=== PATIENT | female | born 1965 | race Caucasian/White ===

== ENCOUNTER 2017-02-28 18:20 | Inpatient (IN) | payer OTHER ==
[~2017-02-28] VITALS: Ht 172.7 cm; Wt 122.0 kg
--- NOTE | 2017-02-28 18:40 | NUR ---
BIB SELF PRESENTS TO ED: SOB , NAUSEA x 2 WEEKS. DENIES COUGH/CONGESTION, NAD NOTED, VSS, RESP EVEN AND UNLABORED, SKIN WARM AND DRY. AT BS.
--- NOTE | 2017-02-28 19:23 | NUR ---
XRAY AT BS
[2017-02-28 19:24] LABS: BASOPHILS % (AUTO) 0.2 % (0.0-2.0); EOSINOPHILS # (AUTO) 0.3 /CMM (0.0-0.7); EOSINOPHILS % (AUTO) 3.6 % (0.0-6.0); HEMATOCRIT 41 % (33-45); HEMOGLOBIN 13.2 g/dL (11.5-14.8); LYMPHOCYTES # (AUTO) 1.5 /CMM (0.8-4.8); LYMPHOCYTES % (AUTO) 16.5 % (20.0-44.0); MEAN CORPUSCULAR HEMOGLOBIN 26 PG (26.0-33.0); MEAN CORPUSCULAR HGB CONC 33 g/dl (31.0-36.0); MEAN CORPUSCULAR VOLUME 81 fL (82-100); MONOCYTES # (AUTO) 0.4 /CMM (0.1-1.30); MONOCYTES % (AUTO) 4.3 % (2.0-12.0); NEUTROPHILS # (AUTO) 6.9 /CMM (1.8-8.9); NEUTROPHILS % (AUTO) 75.4 % (43.0-81.0); PLATELET COUNT (AUTO) 224 /CMM (150-450); RDW COEFFICIENT OF VARIATION 15.4 (11.5-15.0); RED BLOOD CELL COUNT(AUTO) 5.03 MIL/uL (4.0-5.2); WHITE BLOOD COUNT (AUTO) 9.1 K/uL (4.3-11.0)
--- NOTE | 2017-02-28 19:25 | NUR ---
RECEIVED REPORT. PATIENT RESTING IN BED COMFORTABLY. WILL CONTINUE TO MONITOR.
[2017-02-28 19:58] LABS: D-DIMER 0.36 mg/L(FEU (0.17-0.50); INR 0.97 (0.87-1.13); PROTHROMBIN TIME 10.1 SECS (9.5-12.7)
--- NOTE | 2017-02-28 22:20 | NUR ---
DR RUVALCABA ON THE PHONE WITH MERON JERONIMO NP REGARDING PATIENT ADMISSION.
[2017-02-28 22:26] LABS: CALCIUM, SERUM 8.9 mg/dL (8.5-10.1); CREATININE 1.1 mg/dL (0.6-1.3)
[2017-02-28 22:40] LABS: TROPONIN I 0.486 ng/mL (0.00-0.056)
--- NOTE | 2017-02-28 23:02 | NUR ---
REPORT GIVEN TO JESUS QUIROZ FOR ADMISSION.
[2017-02-28 23:05] VITALS: BP 137/97
--- NOTE | 2017-02-28 23:14 | NUR ---
PATIENT TRANSPORTED TO [facility] [place] VIA ACLS PROTOCOL. RNRICHIE TO PROVIDE ZEINAB.
[2017-02-28 23:30] VITALS: BP 137/97
--- NOTE | 2017-03-01 | NUR ---
TELE/RN NOTES PT RECEIVED FROM ER VIA P[facility]REZ, ACCOMPANIED BY LB AND DAUGHTER. A/OX4, BREATHING EVEN AND UNLABORED. DENIES SOB OR CHEST PAIN AT THIS TIME. APPEARS ANXIOUS. PLACED ON TELE MONITOR SHOWING SINUS RHYTHM HR IN 70'S. IV TO LEFT HAND PATENT AND INTACT. ORIENTED PT TO ROOM AND CALL LIGHT. SIDE RAILS UPX2. BED IN LOW/LOCKED POSITION, WILL CONTINUE TO MONITOR
--- NOTE | 2017-03-01 01:00 | NUR ---
TELE/RN NOTES HEPARIN BOLUS AND DRIP STARTED VIA HOSPITAL PROTOCOL. PT EDUCATED ON SIDE EFFECTS OF HEPARIN AND TO MONITOR FOR BLEEDING. PT VERBALIZED UNDERSTANDING. PTT ORDERED IN AM
[2017-03-01] MEDS ORDERED: ASPI81TA2 PO (02:14)
[2017-03-01] MEDS ORDERED: ATOR40TA PO (02:14)
[2017-03-01] MEDS ORDERED: CLOP75TA2 PO (02:14)
[2017-03-01 04:00] VITALS: BP 117/74
--- NOTE | 2017-03-01 06:36 | NUR ---
TELE/RN NOTES PT AWAKE, RESTING COMFORTABLY IN BED. REMAINS ON ROOM AIR, BREATHING EVEN AND UNLABORED. ON TELE MONITOR SHOWING SINUS RHYTHM, HR IN 60'S. APPEARED ANXIOUS AT TIMES DURING SHIFT, EDUCATION AND EMOTIONAL SUPPORT PROVIDED. CRN PROVIDED REASSURANCE WELL. REMAINS ON HEPARIN DRIP VIA IV TO LEFT HAND AT 1,200 UNITS /HR. PTT ORDERED THIS AM. NO S/S OF ACTIVE BLEEDING NOTED. MADE PT COMFORTABLE POSSIBLE DURING SHIFT. ALL NEEDS MET. BED IN LOW/LOCKED POSITION, CALL LIGHT IN REACH. SIDE RAILS UPX2. WILL ENDORSE TO AM SHIFT ZEINAB.
[2017-03-01 07:00] VITALS: BP 124/80
--- NOTE | 2017-03-01 07:20 | NUR ---
MARINE CHRONOMETER ASSEMBLER NOTES RECEIVED PATIENT IN BED, AWAKE. A/O X4. ON TELE MONITOR SINUS JANE HR 58. TOLERATING ROOM AIR, NO SOB. ON HEPARIN DRIP AT 1200 UNITS/HR. DENIES CHEST PAIN, NO BLEEDING NOTED. BREATHING EVEN AND NON LABORED. CALL LIGHT WITHIN REACH. WILL CONT TO MONITOR.
[2017-03-01 07:29] LABS: BASOPHILS % (AUTO) 0.3 % (0.0-2.0); EOSINOPHILS # (AUTO) 0.3 /CMM (0.0-0.7); EOSINOPHILS % (AUTO) 5.2 % (0.0-6.0); HEMATOCRIT 38 % (33-45); HEMOGLOBIN 12.4 g/dL (11.5-14.8); LYMPHOCYTES # (AUTO) 1.4 /CMM (0.8-4.8); LYMPHOCYTES % (AUTO) 25.5 % (20.0-44.0); MEAN CORPUSCULAR HEMOGLOBIN 26 PG (26.0-33.0); MEAN CORPUSCULAR HGB CONC 33 g/dl (31.0-36.0); MEAN CORPUSCULAR VOLUME 81 fL (82-100); MONOCYTES # (AUTO) 0.3 /CMM (0.1-1.30); MONOCYTES % (AUTO) 5.4 % (2.0-12.0); NEUTROPHILS # (AUTO) 3.6 /CMM (1.8-8.9); NEUTROPHILS % (AUTO) 63.6 % (43.0-81.0); PLATELET COUNT (AUTO) 186 /CMM (150-450); RDW COEFFICIENT OF VARIATION 15.3 (11.5-15.0); WHITE BLOOD COUNT (AUTO) 5.6 K/uL (4.3-11.0)
[2017-03-01 07:40] LABS: CALCIUM, SERUM 8.6 mg/dL (8.5-10.1); CREATININE 0.9 mg/dL (0.6-1.3); POTASSIUM 3.6 mmol/L (3.5-5.1)
[2017-03-01 07:47] LABS: ALBUMIN 2.9 g/dL (3.4-5.0); BILIRUBIN,TOTAL 0.8 mg/dL (0.2-1.0); MAGNESIUM 1.9 mg/dL (1.8-2.4); PHOSPHORUS 4.1 mg/dL (2.5-4.9); TOTAL PROTEIN, SERUM 6.5 g/dL (6.4-8.2)
[2017-03-01 07:56] LABS: THYROID STIMULATING HORMONE 6.163 uIU/mL (0.358-3.74)
[2017-03-01 08:00] VITALS: BP 114/69
--- NOTE | 2017-03-01 08:20 | NUR ---
APPT 64 SEC. NO CHANGE, ON THERAPEUTIC DOSE. CONT HEPARIN DRIP AT 1200 UNITS/HR PER DOSING PHARMACY PROTOCOL.
[2017-03-01 08:26] LABS: TROPONIN I 0.429 ng/mL (0.00-0.056)
--- NOTE | 2017-03-01 08:30 | NUR ---
PATIENT IS SEEN BY DR. KHANNA TODAY, ECHO STAT. WILL F/U.
--- NOTE | 2017-03-01 10:36 | NUR ---
PATIENT CONSENTED CT ANGIOGRAM HEART W 3D, CONSENT FORM PLACE IN THE CHART.
[2017-03-01 12:00] VITALS: BP 104/55
--- NOTE | 2017-03-01 12:04 | NUR ---
PATIENT IS BACK TO THE UNIT FROM CT ANGIO PROCEDURE. V/S STABLE.
--- NOTE | 2017-03-01 12:40 | NUR ---
CTA RN notes 1050 Seen the patient in 321-2, AOx4, consent signed and verified with patient. Dr. Garcia talked overphone with the patient to verify the procedure explained. Denies any allergies. denies chest pain only mild SOB. 1100 New IV started on the right AC 20. Pre procedure checklist done. [address] room 1130 Metoprolol 5mg given IV for HR >60. Blood pressure normotensive. 1139 Nitro 0.4 SubLingual given. Patient made aware of potential adverse reaction. 1142 CTA scan done. vitals stable, kept bedrest. vitals monitored 1150 Returned to room. vital stable, belonging's returned to patient (necklace). 1245 Vital signs remain stable, diet served. Instructed to change position slowly and asked for assistance, will feeling light headed due to medications given. Endorsed to [facility] LEE for continuity of care.
--- NOTE | 2017-03-01 15:42 | NUR ---
CTA OF THE HEART AND CORONARY ARTERIES RESULTED, CALLED SPOKE TO DR. KHANNA WITH RESULT. PER DR. KHANNA, STOP HEPARIN DRIP. SPOKE TO THE PATIENT. CHARGE NURSE IS AWARE.
[2017-03-01 16:00] VITALS: BP 131/84
--- NOTE | 2017-03-01 16:55 | NUR ---
PATIENT TO BE DISCHARGED HOME ORDERED.
--- NOTE | 2017-03-01 17:47 | NUR ---
UNDERWRITING DIRECTOR DISCHARGED PATIENT HAS BEEN CLEARED FOR DISCHARGED HOME BY ROBSON/ADVOCACY DIRECTOR. PATIENT IS AMBULATORY, V/S WNL. IV IN LEFT HAND AND RIGHT AC REMOVED, GAUZE APPLIED, NO BLEEDING NOTED. SKIN INTACT, VOIDED WITHOUT DIFFICULTY. NO EPISODE OF CHEST PAIN DURING THE SHIFT. DISCHARGED INSTRUCTION AND PRESCRIPTION TO TAKE GIVEN TO THE PATIENT, VERBALIZED UNDERSTANDING. BELONGINGS CHECKED PRIOR DC. IMAGES RESULT PROVIDED TO THE PATIENT ORDERED. PATIENT IS AWARE TO FOLLOW UP WITH PRIMARY MD, DR. KHANNA, AND DR. PAVON POST DC. PATIENT LEFT HOSP IN STABLE CONDITION VIA PRIVATE CAR ACCOMPANIED BY HER FAMILY.
== END 2017-03-01 17:30 | disposition home or self-care (01) | DRG 281 ==
LOC: ER 18:26 → TELE 23:06
PROVIDERS: ADMIT Nurse Practitioner Acute Care; ATTEND Nurse Practitioner Acute Care
DX: I21.4 Non-ST elevation (NSTEMI) myocardial infarction (principal); D68.61 Antiphospholipid syndrome; I31.9 Disease of pericardium, unspecified; E44.0 Moderate protein-calorie malnutrition; E87.1 Hypo-osmolality and hyponatremia; K51.90 Ulcerative colitis, unspecified, without complications; Z68.41 Body mass index [BMI] 40.0-44.9, adult; Z86.73 Personal history of transient ischemic attack (TIA), and cerebral infarction without residual deficits; Z79.01 Long term (current) use of anticoagulants; Z79.899 Other long term (current) drug therapy; Z90.49 Acquired absence of other specified parts of digestive tract; I10 Essential (primary) hypertension; E03.9 Hypothyroidism, unspecified; E66.01 Morbid (severe) obesity due to excess calories
CPT/HCPCS: 36415; 71010-TC; 75574; 80048-TC; 80053-TC; 80061-TC; 83735-TC; 83880; 84100-TC; 84436-TC; 84443-TC; 84480; 84484-TC; 85025-TC; 85378-TC; 85652-TC; 85730-TC; 86140-TC; 87081-TC; 93307-TC; J1644; J3490; J7050; Q9967; Z7610